=== PATIENT | female | born 1990 | race Caucasian/White ===

== ENCOUNTER 2021-01-25 08:41 | Emergency (ER) | payer BC ==
[~2021-01-25] VITALS: Ht 160 cm; Wt 59.0 kg
[2021-01-25 08:48] VITALS: BP 116/58
--- NOTE | 2021-01-25 08:49 | PHYS DOC ---
Adult General [facility] HPI Patient is a healthy 30-year-old female presenting for epigastric pain. Onset was 72 hours prior without any known inciting event, trauma, mechanism of injury, ingestion or known exposure. Nothing known makes better. Certain positional movements such as increased abdominal wall pressure and twisting motions make worse. Reports she is asymptomatic at rest but reports sharp nonradiating central abdominal wall pressure with aggravating movements. At times she states it is tender to palpation. She states she has been more aware of her abdomen and feels that at certain times there is a bulge at midline which concerns her and is not typically there. She has no other known medical issues, takes no medications on a daily basis, no recent sick contacts or travel. She has no history of any intra-abdominal abnormalities, no prior abdominal surgeries, has had 2 children via spontaneous vaginal that have been unremarkable Review of Systems Review of Systems Fourteen body systems of review of systems have been reviewed. See HPI for pert inent positives and negative responses, other boone all other systems are negative, non-pertinent or non-contributory Physical Exam Physical Exam Constitutional: Well developed, well nourished, no acute distress, non-toxic a ppearance. HENT: Normocephalic, atraumatic, bilateral external ears normal, oropharynx moist, no oral exudates, nose normal. Eyes: PERRLA, EOMI, conjunctiva normal, no discharge. Neck: Normal range of motion, no tenderness, supple, no stridor. Cardiovascular: Heart rate regular, sinus rhythm, no murmurs rubs or gallops Lungs & Thorax: Bilateral breath sounds clear to auscultation Abdomen: Bowel sounds normal, soft, epigastric tenderness with palpation, no guarding or rebound, no masses, no pulsatile masses. Nonsurgical abdomen, no peritoneal signs Skin: Warm, dry, no erythema, no rash. Back: No tenderness, no CVA tenderness. Extremities: No tenderness, no cyanosis, no clubbing, ROM intact, no edema. Neurologic: Alert and oriented X 3, grossly normal motor & sensory function, no focal deficits noted. Psychologic: Affect normal, judgement normal, mood normal. Current Patient Data Vital Signs Vital Signs Date Time Temp Pulse Resp B/P (MAP) Pulse Ox O2 Delivery O2 Flow Rate FiO2 01/25/21 08:48 98.3 114 16 116/58 (77) 96 Room Air Vital Signs Date Time Temp Pulse Resp B/P (MAP) Pulse Ox O2 Delivery O2 Flow Rate FiO2 01/25/21 08:48 98.3 114 16 116/58 (77) 96 Room Air EKG EKG [] Radiology/Procedures Radiology/Procedures [] Heart Score C/O Chest Pain: No Risk Factors: Risk Factors: DM, Current or recent (<one month) smoker, HTN, HLP, family history of CAD, obesity. Risk Scores: Risk Factors: DM, Current or recent (<one month) smoker, HTN, HLP, family history of CAD, obesity. Course & Med Decision Making Course & Med Decision Making ABCs unremarkable. I disclosed entirety of ER findings and discussed most likely diagnosis of epigastric abdominal pain of unknown etiology, I discussed most likely diagnosis of reducible epigastric hernia. Other diagnoses were discussed with patient such as gastric ulcer, constipation, ACS and other concerning abnormalities but all deemed less likely causes of patient's presentation. Plan of care discussed at length with need for close outpatient follow-up to review today's ER visit stressed. I discussed role of taking H2 valentina, performing abdominal wall strengthening exercises with instructions for outpatient general surgery consultation. Strict return precautions were also discussed at length with good understanding verbalized by patient. Patient voiced understanding and agreement with the plan. Patient knows to come back for repeat evaluation if concerning signs or symptoms present prior to outpatient follow-up. Hemodynamically stable, ambulatory and well-appearing at time of disposition. Dragon Disclaimer Dragon Disclaimer This electronic medical record was generated, in whole or in part, using a voice recognition dictation system. Departure Departure: Impression: Primary Impression: Epigastric abdominal pain Disposition: HOME / SELF CARE / HOMELESS Condition: STABLE Referrals: WOODROW EL MD Patient Instructions: Abdominal Pain, Women Additional Instructions: You have been evaluated in the Emergency Department today for abdominal pain. Your evaluation was not suggestive of any emergent condition requiring medical intervention at this time. However, some abdominal problems make take more time to appear. Therefore, it is important for you to watch for any new symptoms or worsening of your current condition. As discussed, there is concern for potential epigastric hernia. Please continue to increase abdominal wall core strength via exercises. Outpatient general surgery consultation might be indicated (please see Dr. El's contact information attached) Please follow up with your primary care physician for follow-up on this matter. Please utilize Tylenol as needed for pain. You can try prescribed famotid ine/Pepcid stomach medication which might assist in your symptoms Return to the Emergency Department if you experience worsening pain, persistent fevers greater than 100.4, recurrent vomiting, blood in vomit, blood in stool, dark tarry stool, chest pain, difficulty breathing, or any other concerning symptoms. Scripts Famotidine (FAMOTIDINE) 40 Mg Tablet 1 TAB PO DAILY for abdominal pain, #30 TAB 0 Refills Prov: ANN MCGRATH DO 01/25/21 ANN MCGRATH DO Jan 25, 2021 08:49
[2021-01-25] MEDS ORDERED: FAMO40TA4 PO (09:19)
== END 2021-01-25 09:26 | disposition home or self-care (01) ==
LOC: ER 08:41
DX: R10.13 Epigastric pain (principal)
CPT/HCPCS: 99283